=== PATIENT | male | born 2000 | race Caucasian/White ===

== ENCOUNTER 2025-02-08 01:13 | Emergency (ER) | payer BC, SELFPAY ==
--- OUTSIDE RECORDS SUMMARY | 2025-02-08 01:15 | XMS_ITS | Encounter Summary ---
Author Organization [facility] Address [address] [place] [address] Care Team Providers Care Statuary Painter Name Role Phone Víctor Peralta DO Primary Care Provider Reason for Visit * Reason Onset Date Comments MEDICATION REFILL 03/03/2015 Encounter Details Date Type Department Care Team ([facility] Contact Info) Description 03/03/2015 Refill [facility] - Diabetes Mgmt [facility] [place] [address] Mohinder Guevara MD [facility] [place] [address] MEDICATION REFILL Social History Tobacco Use Types Packs/Day Years Used Date Smoking Tobacco: Never Sex and Gender Information Value Date Recorded Sex Assigned at Not on file 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 Gender Identity Not on file Sexual Orientation Not on file documented as of this encounter Plan of Treatment Upcoming Encounters Date Type Department Care Team ([facility] Contact Info) Description 04/09/2025 1:00 PM CDT Office Visit [facility] - Endocrinology [address] [place] [phone] Elvia Maxwell APRN-CONCRETE PRECAST MOULDER [address] [facility] [place] [phone] documented as of this encounter Visit Diagnoses Not on filedocumented in this encounter Care Teams Statuary Painter Relationship Specialty Start Date End Date Víctor Peralta DO [address] [phone] PCP - General Family Medicine 10/27/23 documented as of this encounter
--- OUTSIDE RECORDS SUMMARY | 2025-02-08 01:15 | XMS_ITS | Encounter Summary ---
Author Organization [facility] Address [address] [place] [address] Care Team Providers Care Net Front End Developer Name Role Phone NormalydiaVíctor DO Primary Care Provider Reason for Visit * Reason Onset Date Comments MEDICATION REFILL 12/11/2024 Encounter Details Date Type Department Care Team (Late Contact Info) Description 12/11/2024 Refill [facility] [place] [phone] Elvia Maxwell APRN-REGULATORY AFFAIRS STRATEGY SPECIALIST [address] [place] [address] MEDICATION REFILL Social History Tobacco Use Types Packs/Day Years Used Date Smoking Tobacco: Never Smokeless Tobacco: Never Alcohol Use Standard Drinks/Week Comments Yes 0 (1 standard drink = 0.6 oz pur e alcohol) soccially Sex and Gender Information Value Date Recorded Sex Assigned at Not on file 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 Gender Identity Not on file Sexual Orientation Not on file documented as of this encounter Plan of Treatment Upcoming Encounters Date Type Department Care Team (Late Contact Info) Description 04/09/2025 1:00 PM CDT Office Visit [facility] [place] [phone] Elvia Maxwell GLASS TUBE BENDER-REGULATORY AFFAIRS STRATEGY SPECIALIST [address] [place] [phone] documented as of this encounter Visit Diagnoses Diagnosis Type 1 diabetes mellitus without complication (HCC) Type I (juvenile type) diabetes mellitus without mention of complication, not stated as uncontrolled documented in this encounter Care Teams Net Front End Developer Relationship Specialty Start Date End Date Víctor Peralta DO [address] [phone] PCP - General Family Medicine 10/27/23 documented as of this encounter
--- OUTSIDE RECORDS SUMMARY | 2025-02-08 01:15 | XMS_ITS | Encounter Summary ---
Author Organization [facility] Address [address] [place] [address] Care Team Providers Care Orthodontic Technician Assistant Name Role Phone WorkmanVíctor DO Primary Care Provider Reason for Visit * Reason Comments Refill Request Encounter Details Date Type Department Care Team (Late Contact Info) Description 04/02/2019 Refill [facility] - Diabetes [id number] [place] [address] [place], [facility]-CONTACT CENTER ASSOCIATE [address] [place] [address] Refill Request Social History Tobacco Use Types Packs/Day Years Used Date Smoking Tobacco: Never Smokeless Tobacco: Never Sex and Gender Information Value Date Recorded Sex Assigned at Not on file 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 Called mother and she stated Abdon has been seen by adult endo. Asked her to update Fazal on new physician. She agree.d documented in this encounter Plan of Treatment Upcoming Encounters Date Type Department Care Team (Late Contact Info) Description 04/09/2025 1:00 PM CDT Office Visit [facility] - Endocrinology [address] [place] [address] Elvia Maxwell APRN-CONTACT CENTER ASSOCIATE [address] [facility] [place] [phone] documented as of this encounter Visit Diagnoses Not on filedocumented in this encounter Care Teams Orthodontic Technician Assistant Relationship Specialty Start Date End Date Víctor Peralta DO [address] [phone] PCP - General Family Medicine 10/27/23 documented as of this encounter
--- OUTSIDE RECORDS SUMMARY | 2025-02-08 01:15 | XMS_ITS | Data Portability ---
Author Organization [place] - [facility] [employer], Main Office Address [address] [place] [address] Assessment No assessment recorded. Plan of Treatment Reminders Order Date Submit Date Provider Last Modified By Organization Details Last Modified Time Details Appointments None recorded . Lab HbA1c (hemoglo bin A1c), blood 023 12/24/19 23 [email or web address] Not available 3 15:29:10 CMP, serum or plasma 023 12/24/19 23 [email or web address] Not available 3 15:29:11 lipid panel, serum 023 12/24/19 23 Not available 3 15:29:11 microalb umin/cre atinine, mass ratio, urine 023 12/24/19 23 [email or web address] Not available 3 15:29:10 TSH + free T4, serum 023 12/24/19 23 [email or web address] Not available 3 15:29:11 Referral None recorded . Procedures None recorded . Surgeries None recorded . Imaging None recorded . Medication Orders None recorded . Patient TargetsNo targets recorded. Patient InstructionsNo instructions recorded. Reason for Referral None Reported. Results Created Date Observation Date Name Description Value Unit Range Abnormal Flag Note LastModifiedBy Organization Detail LastModifiedTime 03/07/20 22 03/07/2022 URINE DRUG SCREE N amphetamines negati ve Amphe tamin e cut off 500 ng/mL Not Available [facility] (Lab) [address] [place], [address], 03/07/2022 20:28:32 03/07/20 22 03/07/2022 URINE DRUG SCREE N barbiturates negati ve Deena turat e cut off 200 ng/mL Not Available [facility] (Lab) [address] [place], [address], 03/07/2022 20:28:32 03/07/20 22 03/07/2022 URINE DRUG SCREE N benzodiazepi reji negati ve Benzo diaze pine cut off 200 ng/mL Not Available [facility] (Lab) [address] [place], [address], 03/07/2022 20:28:32 03/07/20 22 03/07/2022 URINE DRUG SCREE N cocaine negati ve Cocai ne metab olite cut off 150 ng/mL Not Available [facility] (Lab) [address] [place], [address], 03/07/2022 20:28:32 03/07/20 22 03/07/2022 URINE DRUG SCREE N MDMA negati ve MDMA cut off 500 ng/mL Not Available [facility] (Lab) [address] [place], [address], 03/07/2022 20:28:32 03/07/20 22 03/07/2022 URINE DRUG SCREE N methadone negati ve Metha done cutof f 300 ng/mL . Not Available [facility] (Lab) [address] [place], [address], 03/07/2022 20:28:32 03/07/20 22 03/07/2022 URINE DRUG SCREE N opiates negati ve Opiat e cut off 300 ng/mL Not Available [facility] (Lab) [address] [place], [address], 03/07/2022 20:28:32 03/07/20 22 03/07/2022 URINE DRUG SCREE N oxycodone negati ve Oxyco done cut off 100 ng/mL Not Available [facility] (Lab) [address] [place], [address], 03/07/2022 20:28:32 03/07/20 22 03/07/2022 URINE DRUG SCREE N phencyclidin e negati ve PCP cut off 25 ng/mL Not Available [facility] (Lab) [address] [place], [address], 03/07/2022 20:28:32 03/07/20 22 03/07/2022 URINE DRUG SCREE N marijuana negati ve Marij uana cut off 50 ng/mL ANY POSIT DENIS RESUL TS REPOR CHECO ARE UNCON FIRME D, AND SUCH, SHOUL D BE USED FOR MEDIC AL TREAT MENT PURPO SES ONLY. Not Available [facility] (Lab) [address] [place], [address], 03/07/2022 20:28:32 Result Notes None recorded. Problems Name Problem SNOMED Code Status Onset Date Resolution Date Notes Provider Name and Address Organization Details Recorded Time Herpes labialis 1096000 Completed 201604/17/2018 Not Available [facility] 3 19:14:18 Asthma 360522863 Active 2016 Not Available [facility] 3 19:14:18 Recurrent oral herpes simplex infection 308958790 Active 2017 Not Available [facility] 3 19:14:19 Headache 54940686 Completed 201604/17/2018 Not Available [facility] 3 19:14:19 Seasonal allergic rhinitis 833045212 Active 2016 Not Available [facility] 3 19:14:19 Sinusitis 99189170 Completed 201604/04/2018 Not Available [facility] 3 19:14:19 Dizziness 711803164 Completed 201704/17/2018 Not Available [facility] 3 19:14:19 Allergic bronchitis 239115449 Completed 201704/17/2018 Not Available [facility] 3 19:14:19 Uncontroll ed type 1 diabetes mellitus 527698650 Active 2021 Not Available [facility] 3 19:14:19 Paronychia of finger 419508919 Active 2021 Not Available [facility] 3 19:14:19 Type 1 diabetes mellitus 96277962 Active 2017 Not Available [facility] 3 19:14:19 Liver enzymes level above reference range 685879500 Active 2017 Not Available [facility] 3 19:14:19 Problem Notes None recorded. Procedures Surgical History Date Name Laterality Status Provider Name and Address Organization Details Recorded Time Unlisted procedure nose completed Not Available [facility] 11/23/2022 19:13:40 Imaging Results None recorded. Procedure Notes None recorded. Medical Equipment None Reported. Allergies Allergen ID Allergen Name Allergen Category Reaction Reaction Severity Criticality Documentation Date Start Date Code Code System Note Provider Name and Address Organization Details Recorded Time 47251 Substance with sulfonami de structure and antibacte rial mechanism of action (substanc e) medicatio n Not available Not available Not available 11/23/2022 63295 8003 SNOMED Not Available [facility] 3 19:15:28 07609 Product containin g penicilli n (product) medicatio n Not available Not available Not available 11/23/2022 75226 8001 SNOMED Not Available [facility] 3 19:15:28 79660 NovoLog medicatio n other moderate Not available 11/23/2022 34038 0 RxNorm atrop hy of fat on stoma ch Not Available [facility] 3 19:15:28 Medications Name Sig Start Date Stop Date Status Note LastModified by Organization Details LastModified Time doxycycli ne hyclate 100 mg capsule Take 1 capsule twice a day by oral route for 10 days. 04/09 completed Not Available Not Available Not Available loperamid e 2 mg capsule 05/29 completed Not Available Not Available Not Available cetirizin e 10 mg tablet Take 1 tablet every day by oral route. 09/21 completed Not Available Not Available Not Available azithromy willam 250 mg tablet TAKE 2 TABLETS BY MOUTH ON DAY 1, AND THEN TAKE 1 TABLET BY MOUTH ONCE A DAY ON DAY 2 THROUGH DAY 5 active Not Available Not Available No t Available ibuprofen 800 mg tablet 04/25 completed PRN Not Available Not Available Not Available Glucagon Emergency Kit 1 mg solution for injection active Not Available Not Available No t Available hydrocodo ne 5 mg-acetam inophen 325 mg tablet 03/05 completed Not Available Not Available Not Available ondansetr on HCl 4 mg tablet 05/29 completed Not Available Not Available Not Available clindamyc in HCl 150 mg capsule 03/05 completed Not Available Not Available Not Available metronida zole 500 mg tablet 05/29 completed Not Available Not Available Not Available ciproflox acin 500 mg tablet 05/29 completed Not Available Not Available Not Available triamcino lone acetonide 0.1 % topical cream 04/25 completed Not Available Not Available Not Available famciclov ir 250 mg tablet TAKE 1 TABLET BY MOUTH DAILY 2022 active Not Available Not Available Not Avai lable famciclov ir 500 mg tablet 03/07 completed Not Available Not Available Not Available Humalog U-100 Insulin 100 unit/mL subcutane ous solution INJECT SUBCUTAN EOUSLY UP TO 200 UNITS EVERY 2 DAYS active Not Available Not Available No t Available cephalexi n 500 mg capsule Take 1 capsule 3 times a day by oral route for 7 days. active Not Available Not Available No t Available oseltamiv ir 75 mg capsule Take 1 capsule twice a day by oral route for 5 days. active Not Available Not Available No t Available Qvar 40 mcg/actua tion Metered Aerosol oral inhaler Inhale 2 puffs twice a day by inhalati on route as directed for 30 days. active Not Available Not Available No t Available monteluka st 10 mg tablet Take 1 tablet every day by oral route for 30 days. 09/21 completed Not Available Not Available Not Available methylpre dnisolone 4 mg tablets in a dose pack Take 1 dose pk every day by oral route as directed for 6 days. 04/17 completed Not Available Not Available Not Available fluticaso ne propionat e 50 mcg/actua tion nasal spray,nate pension Downing 2 sprays every day by intranas al route as directed for 90 days. active Not Available Not Available No t Available amoxicill in 875 mg-potass ium clavulana te 125 mg tablet 04/04 completed Not Available Not Available Not Available azithromy willam 500 mg tablet 09/14 completed Not Available Not Available Not Available ProAir HFA 90 mcg/actua tion aerosol inhaler Inhale 2 puffs every 4-6 hours by inhalati on route as needed for 30 days. active Not Available Not Available No t Available budesonid e-formote rol HFA 160 mcg-4.5 mcg/actua tion aerosol inhaler USE 1 TO 2 INHALATI ONS BY MOUTH TWICE DAILY DIRECTED 2023 active Not Available Not Available Not Avai lable Contour Next Test Strips USE STRIP TO CHECK GLUCOSE FIVE TIMES DAILY active Not Available Not Available No t Available Tresiba FlexTouch U-100 insulin 100 unit/mL (3 mL) subcutane ous pen INJECT 24 UNITS SUBCUTAN EOUSLY ONCE DAILY AT BEDTIME active Not Available Not Available No t Available Afrezza 4 unit (90)/8 unit (90) cartridge with inhaler Inhale 4 units 3 times a day by inhalati on route before meals for 30 days. 02/06 completed Not Available Not Available Not Available Danielaglsoila KwikPen U-100 Insulin 100 unit/mL (3 mL) subcutane ous inject up to 15 units in morning and 25 units at bedtime if needed for emergenc ies only 2022 active Not Available Not Available Not [facility] Dexcom G6 Sensor device change every 10 days 2022 active Not Available Not Available Not Avleonora lable Dexcom G6 Recreational Resort Manager USE DIRECTED active Not Available Not Available No t Available Dexcom G6 Transmitt er device USE DIRECTED 2022 active Not Available Not Available Not [facility] Glucagon (HCl) Emergency Kit 1 mg solution for injection Take 1 mg as needed by injectio n route as needed for 1 day. active injet 1 mg IM as needed for sugars under 50 mg/dL or if unable to take glucose by mouth Not Available Not Available Not Available Omnipod 5 G6 Pods (Gen 5) subcutane ous cartridge CHANGE EVERY 2 TO 3 DAYS DIRECTED active Not Available Not Available No t Available Vitals Date Recorded Body mass index (BMI) Body height Oxygen saturation Oxygen saturation in Arterial blood by Pulse oximetry Heart rate Respiratory rate Body temperature Body weight Systolic blood pressure Diastolic blood pressure Provider Name and Address Organization Details Last Updated DateTime 1 30.8 kg/m2 177.8 cm 98 % 98 % 95 /min 16 /min 98.2 [degF] 23331.3 6 g 100 mm[Hg] 80 mm[Hg] Not Available [facility] 3 19:14:07 Date Recorded Body mass index (BMI) Body height Oxygen saturation Oxygen saturation in Arterial blood by Pulse oximetry Heart rate Respiratory rate Body temperature Body weight Systolic blood pressure Diastolic blood pressure Provider Name and Address Organization Details Last Updated DateTime 2 30.8 kg/m2 177.8 cm 99 % 99 % 91 /min 16 /min 98 [degF] 95484.3 6 g 104 mm[Hg] 82 mm[Hg] Not Available [facility] 3 19:14:07 Date Recorded Body mass index (BMI) Body height Oxygen saturation Oxygen saturation in Arterial blood by Pulse oximetry Heart rate Body temperature Body weight Systolic blood pressure Diastolic blood pressure Provider Name and Address Organization Details Last Updated DateTime 2 32.4 kg/m2 177.8 cm 98 % 98 % 96 /min 98 [degF] 051441. 16 g 120 mm[Hg] 80 mm[Hg] Not Available [facility] 3 19:14:07 Date Recorded Body height Body mass index (BMI) Body weight Body temperature Heart rate Systolic blood pressure Diastolic blood pressure Provider Name and Address Organization Details Last Updated DateTime 3 177.8 cm 33.7 kg/m2 971857. 77 g 97.8 [degF] 100 /min 144 mm[Hg] 86 mm[Hg] PARMINDER Saul [place] [facility] [employer] [facility] 3 15:14:32 Social History Question Answer Notes LastModified by Organizat ion Details LastModified Time Tobacco Smoking Status Never Smoker Not Available [facility] 11/23/2022 19:13:33 Do You Have An Advance Directive? No [id number] Information not available 11/23/2022 Do You Wear A Helmet When Biking? Yes MIGRATION.330375 5290 Information not available 11/23/2022 What Is Your Level Of Caffeine Consumption? Moderate MIGRATION.361540 6812 Information not available 11/23/2022 In The 14 Days Before Symptom Onset, Have You Had Close Contact With A Laboratory-confirm ed COVID-19 While That Case Was Ill? No MIGRATION.[id number] 3846 Information not available 11/23/2022 In The 14 Days Before Symptom Onset, Have You Had Close Contact With A Person Who Is Under Investigation For COVID-19 While That Person Was Ill? No MIGRATION.235057 9554 Information not available 11/23/2022 What Type Of Diet Are You Following? REGULAR MIGRATION.346421 9129 Information not available 11/23/2022 Which Illicit Or Recreational Drugs Have You Used? None MIGRATION.413488 3697 Information not available 11/23/2022 What Is The Highest Grade Or Level Of School You Have Completed Or The Highest Degree You Have Received? [id number] MIGRATION.135745 2219 Information not available 11/23/2022 Have There Been Any Changes To Your Family Or Social Situation? No MIGRATION.766453 3799 Information not available 11/23/2022 Are There Any Guns Present In Your Home? No MIGRATION.757809 6069 Information not available 11/23/2022 Do You Use Insect Repellent Routinely? No MIGRATION.153256 8307 Information not available 11/23/2022 Where Do You Live? Apartment MIGRATION .[id number] 9841 Information not available 11/23/2022 Do You Have A Medical Power Of Z [employer] Program[employer]? No MIGRATION.546626 1906 Information not available 11/23/2022 Have You Ever Been Counseled For Unhealthy Alcohol Use? No MIGRATION.839425 5619 Information not available 11/23/2022 Do You Have Any Pets? Yes MIGRATION.990589 6221 Information not available 11/23/2022 What Is Your Relationship Status? Single MIGRATION.305132 7437 Information not available 11/23/2022 Do You Use Your Seat Belt Or Car Seat Routinely? Yes MIGRATION.428705 5109 Information not available 11/23/2022 Do You Have Smoke And Carbon Monoxide Detectors In Your Home? Yes MIGRATION.928744 5249 Information not available 11/23/2022 Are You Passively Exposed To Smoke? No MIGRATION.991783 4595 Information not available 11/23/2022 Are There Any Smokers In Your House? No MIGRATION.919463 2235 Information not available 11/23/2022 Do You Participate In Social Media? Yes MIGRATION.850159 1845 Information not available 11/23/2022 Do You Use Sunscreen Routinely? Yes MIGRATION.881732 3209 Information not available 11/23/2022 Has Tobacco Cessation Counseling Been Provided? No MIGRATION.402182 8102 Information not available 11/23/2022 Have You Recently Traveled Abroad? No MIGRATION.010069 6298 Information not available 11/23/2022 Are You Currently In School? Yes MIGRATION.291063 1255 Information not available 11/23/2022 Do You Have Any Dietary Restrictions? No MIGRATION.902876 6683 Information not available 11/23/2022 Sex: Male Functional Status Question Answer Note LastModified by Organizat ion Details LastModified Time Do you use any illicit or recreational drugs? No MIGRATION.505841 0913 Information not available 11/23/2022 Do you or have you ever used any other forms of tobacco or nicotine? No MIGRATION.671254 1595 Information not available 11/23/2022 What is your level of alcohol consumption? Moderate MIGRATION.188479 9983 Information not available 11/23/2022 What is your occupation? [employer] MIGRATION.450071 3541 Information not available 11/23/2022 Do you or have you ever used e-cigarettes or vape? Current user of electronic cigarettes vap MIGRATION.583935 4990 Information not available 11/23/2022 What is your exercise level? Moderate MIGRATION.492734 9165 Information not available 11/23/2022 Mental Status Question Answer Note LastModified by Organizat ion Details LastModified Time Do you feel stressed (tense, restless, nervous, or anxious, or unable to sleep at night)? EN1435-4 MIGRATION.[id number] 6 Information not available 11/23/2022 Family History Nothing Reported. Medical History Condition Response DIABETES, TYPE Y LUNG DISEASE/DISORDER Y Immunizations Vaccine Type Date Status Note Provider Nam e and Address Organization Details Recorded Time DTaP, unspecified formulation 9 completed Not Available [facility] 11/23/2022 19:15:25 Hib (PRP-T) 9 completed Not Available [facility] 11/23/2022 19:15:25 IPV 9 completed Not Available [facility] 11/23/2022 19:15:25 meningococcal MCV4P 6 completed Not Available [facility] 11/23/2022 19:15:25 HPV, quadrivalent 4 completed Not Available [facility] 11/23/2022 19:15:25 HPV, quadrivalent 3 completed Not Available [facility] 11/23/2022 19:15:25 HPV, quadrivalent 3 completed Not Available [facility] 11/23/2022 19:15:25 Hep A, ped/adol, 2 dose 1 completed Not Available [facility] 11/23/2022 19:15:25 Hep A, ped/adol, 2 dose 0 completed Not Available [facility] 11/23/2022 19:15:25 meningococcal MCV4P 0 completed Not Available [facility] 11/23/2022 19:15:26 Tdap 0 completed Not Available [facility] 11/23/2022 19:15:26 DTaP, unspecified formulation 5 completed Not Available [facility] 11/23/2022 19:15:26 IPV 5 completed Not Available [facility] 11/23/2022 19:15:26 MMR 5 completed Not Available [facility] 11/23/2022 19:15:26 pneumococcal conjugate PCV 7 1 completed Not Available [facility] 11/23/2022 19:15:26 DTaP, unspecified formulation 1 completed Not Available [facility] 11/23/2022 19:15:26 Hib (PRP-T) 0 completed Not Available [facility] 11/23/2022 19:15:26 Hep B, adolescent or pediatric 0 completed Not Available [facility] 11/23/2022 19:15:26 MMR 0 completed Not Available [facility] 11/23/2022 19:15:26 DTaP, unspecified formulation 0 completed Not Available [facility] 11/23/2022 19:15:26 Hib (PRP-T) 0 completed Not Available [facility] 11/23/2022 19:15:26 Hep B, adolescent or pediatric 0 completed Not Available [facility] 11/23/2022 19:15:26 IPV 0 completed Not Available [facility] 11/23/2022 19:15:27 DTaP, unspecified formulation 0 completed Not Available [facility] 11/23/2022 19:15:27 Hib (PRP-T) 0 completed Not Available [facility] 11/23/2022 19:15:27 Hep B, adolescent or pediatric 0 completed Not Available [facility] 11/23/2022 19:15:27 IPV 0 completed Not Available [facility] 11/23/2022 19:15:27 Tdap 1 completed Not Available [facility] 11/23/2022 19:15:27 Influenza, split virus, quadrivalent, PF 1 completed Not Available [facility] 11/23/2022 19:15:27 Past Encounters Encounter ID Performer Location Encounter Start Date Encounter Closed Date Diagnosis/Indication Diagnosis SNOMED-CT Code Diagnosis ICD10 Code Diagnosis Note [id number] Daisy Torres MD [facility] [place] [address] [place] [id number] 04/09/2021 00:00:00 04/09/2021 14:47:13 [id number] Anthony Ku MD [address] [address] 09/14/2021 00:00:00 09/14/2021 14:31:18 [id number] [facility] [place] [address] [place] [id number] 10/11/2021 00:00:00 10/11/2021 14:33:59 [id number] Anthony Ku MD [facility]_[address] [address] 03/07/2022 00:00:00 03/07/2022 15:15:03 [id number] [facility] [place] [address] [place] [address] 05/20/2022 00:00:00 05/20/2022 16:13:42 [id number] Daisy Torres [facility] [place] [address] [place] [address] 12/23/2022 14:58:02 12/23/2022 15:44:57 Uncontrolled type 1 diabetes mellitus 324761509 E10.65 a1C of 8% down from 8.3% Continue settings as follows but increase afternoon setting due to hyperglyce mia12 am to 6 am at 1.7 u/hr6 am up to 12 pm at 1.4 u/hrincrea se to 12 pm to 6 pm at 1.4 u/hr6 pm to 12 am at 1.45 u/hr Cut carb ratio down to 1:6 for lunch and dinner and continue 1:8 for dinner. Continue omnipod / automode settings as he has glucose regulation over 70% of the time. He has Gvoke pen for hypoglycem ia. Spent up to 20 minutes preparing to see the patient (eg, review of tests), obtaining and/or reviewing separately obtained history, performing a medically appropriat e examinatio n and evaluation , counseling and educating the patient, ordering medication s, tests, along with documentin g clinical informatio n in the electronic health record, independen tly interpreti ng results and communicat ing results to the patient. rtc in 6 months. Patient was provided a handwritte n lab order which contains our fax number. If he chooses to go outside of the [facility] system to obtain labwork he was advised to provide our fax number and my informatio n to the lab he will be obtaining labwork from in order to have his labs properly forwarded over for me to review so there is no loss of follow up due to use of outside network. He was also advised to contact our clinic informing us that he has completed his labwork so we are aware we will need to reach out to the appropriat e laboratory to request his results be forwarded to us so I might have the ability to review and make further medical decision making in his case. He voiced understand ing. Health Concerns Section Related Observation LastModified by Organization Detai ls LastModified Time None Recorded Concern Status LastModified by Organization Details LastModified Time None Recorded Advance Directives Directive N: Payers Encounter Date Sequence Insurance Name Policy Number Policy Urbina Covered Member ID Urbina Member ID Guarantor Name 12/23/2022 1 [employer] (EPO) Abdon Mcghee Rehg [id number] Shanice Rehg Notes Date Note Type Note Provider Name and Address Organization Details Recorded Time 12/23/2022 text/html 22 yo male comes in for follow up in management of uncontrolled type I DM (A1C of 8% down from 8.3%) At last visit we will continue basal settings:12 am to 6 am at 1.7 u/hr6 am up to 12 pm at 1.4 u/hr12 pm to 6 pm at 1.3 u/hr6 pm to 12 am at 1.45 u/hr labs from 10/17:TSH of 1.15 uIU/mlFT4 of 1.17 ng/dLglucose 97 mg/dl165/110/51/94 a1c 8%microalbumin 15 ug/mg He just started the ominpod 5 since his last labwork. He has noticed more improvements in glucose control overall. He has very few hypoglycemia He runs under 130 mg/dL.He is 211 mg/dL currently - ate 2 hours ago. Daisy Torres MD [address] [place] [address], [facility] [address], [place], [address], [place] [facility] 12/23/2022 15:34:44
--- OUTSIDE RECORDS SUMMARY | 2025-02-08 01:15 | XMS_ITS | Clinical Summary ---
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 Peanut-Containing Drug Products Anaphylaxis High 02/04/2014 Penicillins Unknown 05/13/2010 Sulfa Antibiotics Rash Low 10/28/2022 Medications cetirizine (ZYRTEC) 10 MG tablet Take 1 tablet (10 mg total) by mouth daily. Active budesonide-form oterol (SYMBICORT) 160-4.5 MCG/ACT inhaler Inhale 2 puffs into the lungs 2 (two) times daily. Active BASAGLAR KWIKPEN 100 UNIT/ML injection (PEN) INJECT UP TO 15 UNITS IN THE MORNING AND 25 UNITS AT BEDTIME IF NEEDED. FOR EMERGENCIES ONLY 023 Active Insulin Disposable Pump (OMNIPOD 5 G6 POD, GEN 5,) MiscIndications :Type 1 diabetes mellitus without complication (CMS/HCC HHS/HCC) 1 each by Does not apply route every 3 (three) days. Patient changing POD every 2 to 3 days. 45 each 024 Active Additional Information Patient not taking.Reported on 12/02/2024 glucagon (GLUCAGON EMERGENCY) 1 MG injection Inject 1 mg into the muscle. Active albuterol sulfate HFA (PROAIR HFA) 108 (90 Base) MCG/ACT inhalerIndicati ons:SOB (shortness of breath) Inhale 2 puffs into the lungs every 4 (four) hours as needed for Wheezing. 18 g Active Additional Information Patient not taking.Reported on 12/02/2024 Glucose Blood (CONTOUR NEXT TEST) test strip USE STRIP TO CHECK GLUCOSE FIVE TIMES DAILY Active Continuous Glucose Broadcast Supervisor (DEXCOM G6 DELIVERY ENGINEER) Device see administration instructions. Active Continuous Glucose Transmitter (DEXCOM G6 TRANSMITTER) Misc see administration instructions. Active insulin lispro (HUMALOG/ADMELO G) 100 UNIT/ML injection (VIAL) Inject 100 Units into the skin every 3 (three) days. Active famciclovir (FAMVIR) 250 MG tabletIndicatio ns:Herpes simplex type 1 infection Take 1 tablet (250 mg total) by mouth 2 (two) times daily. 180 tablet 1 025 2024 Active PARoxetine (PAXIL) 20 MG tabletIndicatio ns:Anxiety Take 1 tablet (20 mg total) by mouth every morning. 90 tablet 025 2024 Active PARoxetine (PAXIL) 10 MG tabletIndicatio ns:Anxiety Take 1 tablet (10 mg total) by mouth every morning. 90 tablet 025 2024 Discontinued Active Problems No known active problems Encounters Date Type Department Care Team Description 01/13/2025 MyChart Message Enc [facility] Family & Internal Medicine [address] [phone] Chaz Goel PA Paroxetine prescription 12/02/2024 8:40 AM CDT Office Visit [facility] Family & Internal Medicine [address] [phone] Chaz Goel PA Follow Up (5 month follow up); Medication Management 12/02/2024 Travel from Last 3 Months Immunizations Immunization Administration Dates Next Due DTaP (Daptacel) 02/16/2005, 1,01/31/2000,11/28,1999 Dtap (Generic) 02/16/2005, 1,01/31/2000,11/28,1999 Fluzone (IIV3, Trivalent, 0. 5 ML Prefilled Syringe) 07/10/2024 HPV4 (Gardasil) 10/25/2013,07/12/2013,04/17/2013 Hepatitis A (Havrix [address]) 01/27/2011, 010 Hepatitis B Pediatric 07/28/2000,01/31/2000,02/2000 Hib (Omni-Hib) 07/28/2000, 0,1999,09/11 Influenza (Generic) 07/12/2013, 2,06/16/2011,07/29,07/15/2009,07/11/2008,07/26/2007 ,07/05/2005,08/16/2004,08/29/2003,0 02/2003 Influenza Adult (Generic) 09/14/2021,,09/20/2017,08/05,09/03/2015 MMR (MMRII) 02/16/2005,07/28/2000 Meningococcal (Menactra) 05/09/2016,07/29/2010 Pneumococcal (Prevnar 7) 04/13/2001 Polio IPV (Ipol) 02/16/2005, 0,1999,09/11 Tdap (Generic) 09/14/2021,07/29/2010 Varicella (Varivax) 07/10/2024,05/07/2024 Family History Medical History Relation Comments Cancer Maternal Grandfather Diabetes Maternal Grandmother Heart Disease Paternal Grandfather Stroke Paternal Grandfather Relation Status Comments Father Alive Maternal Grandfather Maternal Grandmother Mother Alive Paternal Grandfather Sister Alive Social History Tobacco Use Types Packs/Day Years Used Date Smoking Tobacco: Never Passive Smoke Exposure: Never Smokeless Tobacco: Never Tobacco Cessation:Counseling Given: No Alcohol Use Standard Drinks/Week Comments Yes 8.3 (1 standard drink = 0.6 oz p ure alcohol) Casually drink PHQ-2 Answer Date Recorded Patient Health Questionnaire-2 Score 0 12/02/2024 Sex and Gender Information Value Date Recorded Sex Assigned at Male 11/26/2024 9:31 AM LANGUAGE INTERPRETER Legal Sex Male 7:46 PM CDT Gender Identity Not on file Sexual Orientation Not on file Last Filed Vital Signs Vital Sign Reading Time Taken Comments Blood Pressure 136/74 12/02/2024 8:40 AM CDT Pulse 94 12/02/2024 8:40 AM CDT Temperature 36.6 C (97.9 F) 12/02/2024 8:40 AM CDT Respiratory Rate 16 12/02/2024 8:40 AM CDT Oxygen Saturation 97% 12/02/2024 8:40 AM CDT Inhaled Oxygen Concentration - - Weight 108.4 kg (239 lb) 12/02/2024 8:40 AM CDT Height 177.8 cm (5' 10 ) 12/02/2024 8:40 AM CDT Body Mass Index 34.29 12/02/2024 8:40 AM CDT Plan of Treatment Upcoming Encounters Date Type Department Care Team (Late st Contact Info) Description 03/05/2025 8:40 AM CDT Office Visit [facility] Family & Internal Medicine - [place] [id number] [place] [phone] [place] [address] [place], [place] [phone] Health Maintenance Due Date Last Done Comments Hepatitis C 2017 COVID-19 Vaccine ( season) 2024 Annual Physical 08/11/2024 08/11/2023 Kidney Health Evaluation 03/06/2025 03/06/2024 Lipid Panel 03/06/2025 03/06/2024 Pneumococcal Vaccine: Pediatrics (0 to 5 Years) and At-Risk Patients (6 to 49 Years) (1 of 2 - PCV) 03/25/2025 04/13/2001 Postponed from 2018 (Patient Refused) Hemoglobin A1C 05/31/2025 11/28/2024, 02/23, 11/10/2023, Additional history exists Diabetes: Retinopathy Eye Exam 03/25/2026 Postponed from 2017 (Future Appointment) DTaP, Tdap and Td Vaccines (8 - Td or Tdap) 09/14/2031 09/14/2021, 07/29/2010, 02/16/2005, Additional history exists Hepatitis B Vaccines Completed 07/28/2000, 01/31/2000, 1999 HPV Vaccines Completed 10/25/2013, 06/25, 04/17/2013 Meningococcal Vaccine Completed 05/09/2016, 010 PHQ-2 (Physician [place]) Completed 12/02/2024 Meningococcal B Vaccine Aged Out No l onger eligible based on patient's age to complete this topic RSV Immunizations Under 20 Months Aged Out No longer eligible based on patient's age to complete this topic Procedures Procedure Name Priority Date/Time Associated Diagnosis Comments LIPID PANEL Routine 03/06/2024 2:10 PM CDT Type 1 diabetes mellitus without complication HEMOGLOBIN, GLYCOSYLATED Routine 11/10/2023 Type 1 diabetes mellitus without complication from Last 3 Months or Most Recently Relevant to Health Maintenance Results * LIPID PANEL (03/06/2024 2:10 PM CDT) CHOLESTEROL 151 <200.0 MG/DL 03/06/2024 2:49 PM CDT [facility] TRIGLYCERIDES 70 <150 MG/DL 03/06/2024 2:49 PM CDT [facility] HDL 62 >40.0 MG/DL 03/06/2024 2:49 PM CDT [facility] LDL (CALCULATED) 75 <100 MG/DL 03/06/20 2:49 PM CDT [facility] NON HDL CHOLESTEROL 89 <130 MG/DL 03/06 2:49 PM CDT [facility] CHOL/HDL RATIO 2.4 0.0 - 4.5 03/06/2024 2:49 PM CDT [facility] VLDL CALCULATION 14 5 - 55 MG/DL 03/06/2024 2:49 PM CDT [facility] LIPID INTERPRETATION 03/06/2024 2:49 PM CDT [facility] Comment: NIH CONCENSUS REPORT RECOMMENDATIONS: ADULT CHILD LOW RISK: CHOLESTEROL <200 <170 TRIGLYCERIDE <150 --- HDL >=60 --- LDL <100 <110 BORDERLINE: CHOLESTEROL 200-239 170-199 TRIGLYCERIDE 150-199 --- HDL 40-59 --- LDL 100-159 110-129 HIGH RISK: CHOLESTEROL >=240 >=200 TRIGLYCERIDE >=200 --- HDL <40 --- LDL >=160 >=130 03/06/2024 2:10 PM CDT Elvia Alissa AUTO GLASS TECHNICIAN LABORATORY Final Resu lt [facility] [address] [place] [address], from Last 3 Months or Most Recently Relevant to Health Maintenance Insurance R Care Teams Boatbuilder Supervisor Relationship Specialty [place] [address] [place], [place] [phone] PCP - General Physician Sales Financial Analyst Medical 07/10/24
--- OUTSIDE RECORDS SUMMARY | 2025-02-08 01:15 | XMS_ITS | Encounter Summary ---
Author Organization [facility] Address [address] [place] [address] Care Team Providers Care Apprenticeship Representative Name Role Phone NormalydiaVíctor DO Primary Care Provider Reason for Visit * Reason Onset Date Comments Appointment 01/13/2016 Dad ask that I s end you a message regarding CGM training. The CGM will be delivered Sunday 01/14. Encounter Details Date Type Department Care Team ([facility] Contact Info) Description 01/13/2016 Telephone [facility] - Diabetes [facility] [address] [place] [address] [place] APRN-BUSINESS RULES DEVELOPER [address] [place] [phone] Appointment (Dad ask that I send you a message regarding CGM training. The CGM will be delivered Sunday 01/14. 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 Gender Identity Not on file Sexual Orientation Not on file documented as of this encounter Plan of Treatment Upcoming Encounters Date Type Department Care Team ([facility] Contact Info) Description 04/09/2025 1:00 PM CDT Office Visit [facility] - Endocrinology [address] [place] [phone] Elvia Maxwell APRN-BUSINESS RULES DEVELOPER [address] [facility] [place] [phone] documented as of this encounter Visit Diagnoses Not on filedocumented in this encounter Care Teams Apprenticeship Representative Relationship Specialty Start Date End Date Víctor Peralta DO [address] [phone] PCP - General Family Medicine 10/27/23 documented as of this encounter
--- OUTSIDE RECORDS SUMMARY | 2025-02-08 01:15 | XMS_ITS | Encounter Summary ---
Author Organization [facility] Address [address] [facility] [place] [address] Care Team Providers Care Concrete Plant Laborer Name Role Phone WorkVíctor freeman Primary Care Provider Encounter Details Date Type Department Care Team ([facility] Contact Info) Description 12/10/2018 Telephone [facility] Pediatrics - Endocrinology [address] [place] [facility] 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 [facility] wants more than referral letter sent to them. They want: any diagnostic labs, last office visit and last Hgb A1C. She states they will not make appointment until received. Fax number is [phone]. documented in this encounter Plan of Treatment Upcoming Encounters Date Type Department Care Team (Late Contact Info) Description 04/09/2025 1:00 PM CDT Office Visit [facility] - Endocrinology [address] [place] [phone] Elvia Maxwell, VIPUL-SUPERVISOR DENTURE DEPARTMENT [address] [facility] [place] [phone] documented as of this encounter Visit Diagnoses Not on filedocumented in this encounter Care Teams Concrete Plant Laborer Relationship Specialty Start Date End Date Víctor Peralta DO [address] [phone] PCP - General Family Medicine 10/27/23 documented as of this encounter
--- OUTSIDE RECORDS SUMMARY | 2025-02-08 01:15 | XMS_ITS | Encounter Summary ---
Author Organization [facility] Address [address] [facility] [place] [address] Care Team Providers Care Security Messenger Name Role Phone Normalydia Víctor Willard GOODRICH Primary Care Provider Encounter Details Date Type Department Care Team (Late Contact Info) Description 10/09/2019 Telephone [facility] Pediatrics - Diabetes [facility] [address] [place] [address] [place], SHIPPING CHECKER-VISUAL DISPLAY MANAGER [address] [place] [phone] Social History Tobacco Use Types Packs/Day Years Used Date Smoking Tobacco: Never Smokeless Tobacco: Never Sex and Gender Information Value Date Recorded Sex Assigned at Not on file Legal Sex Male 5:40 AM TRANSITION SOCIAL WORKER Gender Identity Not on file Sexual Orientation Not on file documented as of this encounter Miscellaneous Notes * Telephone Encounter - Chen Plummer RN - 10/09/2019 1:39 PM CST [facility] called to ask if this patient was still under our care. I notified them that he isnot being seen by an adult park recreation manager. They said they would reach out to the family. SITION SOCIAL WORKER documented in this encounter Plan of Treatment Upcoming Encounters Date Type Department Care Team (Late Contact Info) Description 04/09/2025 1:00 PM CDT Office Visit [facility] - Endocrinology [address] [place] [address] Elvia Maxwell, VIPUL-VISUAL DISPLAY MANAGER [address] [facility] [place] [phone] documented as of this encounter Visit Diagnoses Not on filedocumented in this encounter Care Teams Security Messenger Relationship Specialty Start Date End Date Víctor Peralta DO [address] [phone] PCP - General Family Medicine 10/27/23 documented as of this encounter
--- OUTSIDE RECORDS SUMMARY | 2025-02-08 01:15 | XMS_ITS | Clinical Summary ---
Author Organization [facility] Address [address] [place] [address] Care Team Providers Care Anesthesiologists' Assistant Name Role Phone WorkmanVíctor Primary Care Provider Source Comments [facility],non-owned Affiliates and Associated Physician Practices is amultiple site organization consisting of ambulatory clinics and hospital sitesin [place], [place], [place]. This disclosure is being madepursuant to the Care Everywhere program and may not contain all information available regarding this patient. 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 Alwaysverify current medications with the patient. fluticasone propionate (FLONASE) 50 MCG/ACT nasal spray [place] 1 [place] into each nostril once daily. 1 Inhaler 6 06/19/20 12 Active acetone,urine, (KETOSTIX) stripIndications :Type I (juvenile type) diabetes mellitus without mention of complication, not stated as uncontrolled (HCC) Use as needed (use when blood sugar is greater than 250 or when ill. ). 100 Strip 11 08/29/20 13 Active cetirizine (ZYRTEC) 10 MG tablet Take 1 Tab by mouth once daily. 30 Tab 11 02/05/20 14 Active diphenhydrAMINE (BENADRYL) 25 MG capsule Take 1 (one) capsule by mouth every 4 hours as needed for Itching Active beclomethasone dipropionate (QVAR) 40 MCG/ACT inhaler Inhale 2 Puffs by mouth 2 times daily Active budesonide-formo terol (SYMBICORT) 160-4.5 MCG/ACT inhaler Inhale 2 (two) puffs by mouth 2 times daily Active BASAGLAR KWIKPEN (BASAGLAR) pen Inject 31 Units subcutaneously at bedtime In case of pump failure, give every 24 hours. 1 Box 3 03/30/20 18 Active Insulin Pen Needle (BD PEN NEEDLE YANIV U/F) 32G X 4 MM MISC Use 1 Each once daily For use with Basaglar if off pump, may substiute comparable item per formulary. 100 Each 3 03/30/20 18 Active FREESTYLE TEST STRIP test stripIndications :Type 1 diabetes mellitus without complication, with long-term current use of insulin (HCC) Use for blood glucose monitoring 8-10 times/day. 300 strip 2 11/14/19 19 Active albuterol HFA (ProAir HFA) 108 (90 Base) MCG/ACT inhaler Inhale 2 puffs every 4-6 hours by inhalation route as needed for 30 days. Active glucagon (Glucagen) injection Inject 1 (one) mg into muscle as directed 1 Each 10/27/19 24 Active insulin lispro 100 UNIT/ML for insulin pumpIndications: Type 1 diabetes mellitus without complication (HCC) Inject subcutaneously once daily 100 units daily, for use in insulin pump 90 mL 3 06/28/20 24 Active Continuous Glucose Transmitter (Dexcom G6 Transmitter) MISCIndications: Type 1 diabetes mellitus without complication (HCC) USE DIRECTED CONTINUOUSLY 1 Each 3 11/11/19 25 Active Insulin Disposable Pump (Omnipod 5 PthX4N2 Pods Gen 5) MISCIndications: Type 1 diabetes mellitus without complication (HCC) USE DIRECTED CONTINUOUSLY 45 Each 4 11/11/19 25 Active famciclovir (Famvir) 250 MG tablet Take 1 (one) tablet by mouth once daily 11/22/19 25 Active Continuous Glucose Sensor (Dexcom G7 Sensor) MISCIndications: Type 1 diabetes mellitus without complication (HCC) Use 1 Each every 10 days 10 Each 3 11/29/19 25 Active Continuous Glucose Sensor (Dexcom G7 Sensor) MISCIndications: Type 1 diabetes mellitus without complication (HCC) Use 1 Each every 10 days 1 Each 11/29/19 25 Active Active Problems Problem Noted Date Diagnosed Date Insulin pump status 11/27/2023 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 This is currently under good control. Current treatment plan, which includes Symbicort 160/4.5 2 puffs each day, is effective. No change in therapy today. However, as environmental factors such as pollens and molds seem to be Abdon's triggers, recommend that he try to decrease dose to 1 puff once a day after first keys. However, if symptoms worsen with decreased dose, he should resume 2 puffs daily. Will plan follow-up assessment for control in 6 months. Assessment & Plan (02/17/2015 4:10 PM CDT): Mild persistent - currently with good control. He has normal spirometry today and well controlled symptoms. His measure of airway inflammation is mildly increased suggesting that he does have some underlying inflammation going on. 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 Will reassess ongoing need at next visit. Type 1 diabetes mellitus 05/15/2007 Overview (12/22/2016): Diagnosed 05/15/2007 Assessment & Plan (09/21/2017 12:30 PM CONE RUNNER): 1) increase midnight basal to 1.9 units per hour 2) call as needed to review blood sugars 3) return in [address] Guevara Assessment & Plan (12/22/2016 10:14 AM CDT): 1) decrease breakfast to 1:15 2) call as needed to review blood sugars 3) return in [address] Guevara Assessment & Plan (12/07/2015 8:16 AM CDT): 1) work on pre-meal bolusing 2) will order dexcom g5 sensor 3) call as needed 4) return for Dr. Guevara Assessment & Plan (04/28/2014 1:30 PM CDT): 1) increase basal from 5013-8849 to 1.5 2) increase ISF to 25 3) call as needed 4) return in [address] Guevara Resolved Problems Problem Noted Date Diagnosed Date Resolved Date Asthma 02/17/2012 02/17/2015 Encounters Date Type Department Care Team Description 01/08/2025 Travel 12/11/2024 Refill [facility] - Endocrinology [address] [place] [address] Elvia Maxwell APRN-CNP MEDICATION REFILL 11/28/2024 2:20 PM CONE RUNNER Office Visit [facility] - Endocrinology [address] [place] [address] Elvia Maxwell APRN-CNP Type 1 diabetes mellitus without complication (Primary Dx) 11/28/2024 Travel 11/13/2024 Refill [facility] - Endocrinology [address] [facility], [place] [phone] Elvia Maxwell APRN-CNP Refill Request from Last 3 Months Immunizations Immunization Administration Dates Next Due INFLUENZA VACCINE 06/19/2012 INFLUENZA VACCINE, QUADR. (F LUZONE; FLULAVAL; FLUARIX; AFLURIA QUADRIVALENT; 6MO+), 0.5 ML (IIV4) 09/11/2018,09/20/2017,08/05/2016,2014 Family History Medical History Relation Name Comments Asthma Brother Relation Name Status Comments Brother Social History Tobacco Use Types Packs/Day Years Used Date Smoking Tobacco: Never Smokeless Tobacco: Never Tobacco Cessation:Counseling Given: Not Answered Alcohol Use Standard Drinks/Week Comments Yes 0 (1 standard drink = 0.6 oz pur e alcohol) soccially Sex and Gender Information Value Date Recorded Sex Assigned at Not on file Legal Sex Male 5:40 AM CONE RUNNER Gender Identity Not on file Sexual Orientation Not on file Last Filed Vital Signs Vital Sign Reading Time Taken Comments Blood Pressure 123/80 11/28/2024 2:21 PM CONE RUNNER Pulse 91 11/28/2024 2:21 PM CONE RUNNER Temperature 37.5 C (99.5 F) 11/28/2024 2:21 PM CONE RUNNER Respiratory Rate 16 08/05/2016 9:51 AM CONE RUNNER Oxygen Saturation 95% 11/28/2024 2:21 PM CONE RUNNER Inhaled Oxygen Concentration - - Weight 108.7 kg (239 lb 9.6 oz) 11/28/2024 2:21 PM CONE RUNNER Height 177.8 cm (5' 10 ) 10/27/2023 8: 38 AM CONE RUNNER Body Mass Index 34.38 10/27/2023 8:38 AM CONE RUNNER Plan of Treatment Upcoming Encounters Date Type Department Care Team (Late st Contact Info) Description 04/09/2025 1:00 PM CDT Office Visit [facility] - Endocrinology [address] [place] [phone] Elvia Maxwell, VIPUL-SOUND ENGINEER [address] [facility] [place] [phone] Health Maintenance Due Date Last Done Comments DIABETES RETINOPATHY SCREENING 01/02/2014 HIV SCREENING 2014 HPV VACCINE (1 - Male 3-dose series) 2014 HEPATITIS C SCREENING 07/22/2017 DIABETES-FOOT EXAM WITH MONOFILAMENT 2017 DTAP/TDAP/TD VACCINES (1 - Tdap) 2018 HEPATITIS B VACCINE (1 of 3 - 19+ 3-dose series) 2018 PNEUMOCOCCAL VACCINE (1 of 2 - PCV) 2018 COVID-19 VACCINE ( - season) 2024 DEPRESSION SCREENING 09/25/2024 DIABETES - URINE PROTEIN SCREENING 09/25/2024 03/06/2024, 09/11/2018, 09/20/2017, Additional history exists DIABETES-SERUM CREATININE 03/06/2025 03/06/2024, 08/2024 DIABETES-HGB A1C 05/31/2025 11/28/2024, , 11/10/2023, Additional history exists ZOSTER VACCINE (1 of 2) 2049 INFLUENZA VACCINE Completed 07/10/2024, , 09/11/2018, Additional history exists HIB VACCINE Aged Out No longer eligi ble based on patient's age to complete this topic MENINGOCOCCAL (Group B) VACCINE SHARED DECISION-MAKING Aged Out No longer eligible based on patient's age to complete this topic MENINGOCOCCAL GROUPS A/C/Y/W VACCINE Aged Out No longer eligible based on patient's age to complete this topic Procedures Procedure Name Priority Date/Time Associated Diagnosis Comments HEMOGLOBIN A1C - POINT OF CARE (AMB) [facility] Routine 11/28/2024 2:23 PM CONE RUNNER Type 1 diabetes mellitus without complication MICROALB/CREAT RATIO URINE RANDOM PANEL Routine 09/11/2018 9:56 AM CONE RUNNER Type 1 diabetes mellitus without complication from Last 3 Months or Most Recently Relevant to Health Maintenance Results * HEMOGLOBIN A1C - POINT OF CARE (AMB) [facility] (11/28/2024 2:23 PM CONE RUNNER) Hemoglobin A1c POCT 7.0 % MARCY [address] BLOOD SPECIMEN / Unknown 11/28/2024 2:23 PM CONE RUNNER Elvia Maxwell BLOCKMASON-SOUND ENGINEER LAB - POINT OF CARE OR DERABLES Final Result [address], [facility] [address] [place] [address], [facility] [phone] * MICROALB/CREAT RATIO URINE RANDOM PANEL (09/11/2018 9:56 AM CONE RUNNER) Creatinine Urine 58.92 mg/dL 09/11/20 11:32 AM [facility] Microalbumin Urine 0.9 <1.7 mg/dL 09/11/2018 11:32 AM CONE RUNNER [facility] Microalbumin/Crea tinine Ratio 15 <30 mg/g 09/11/2018 11:32 AM [facility] Urine URINE SPECIMEN OBTAINED BY CLEAN CATCH PROCEDURE / Unknown Collection / Unknown 09/11/2018 9:56 AM CONE RUNNER 09/11/2018 11:02 AM CONE RUNNER Mohinder Guevara MD LAB - URINE CHEMISTRY ORDERA BLES Final Result Performing Organization Address City/State/ZIP Co ct Phone Number [facility] [address] [place] [address] from Last 3 Months or Most Recently Relevant to Health Maintenance Insurance [facility] Address: [facility] [address] [place] [address] Care Teams Anesthesiologists' Assistant Relationship Specialty Start Date End Date Víctor Peralta DO [address] [phone] PCP - General Family Medicine 10/27/23
--- OUTSIDE RECORDS SUMMARY | 2025-02-08 01:15 | XMS_ITS | Encounter Summary ---
Author Organization [facility] Address [address] [place] [address] Care Team Providers Care Purchasing Manager Name Role Phone NormalydiaVíctor DO Primary Care Provider Encounter Details Date Type Department Care Team (Late st Contact Info) Description 12/07/2018 Telephone [facility] - Diabetes Mgmt [address] [place] [address] Mohinder Guevara MD [address] [place] [address] Social History Tobacco Use Types Packs/Day Years Used Date Smoking Tobacco: Never Smokeless Tobacco: Never Sex and Gender Information Value Date Recorded Sex Assigned at Not on file Legal Sex Male 5:40 AM CLAMP REMOVER Gender Identity Not on file Sexual Orientation Not on file documented as of this encounter Miscellaneous Notes * Telephone Encounter - Clifton Mcfadden RN - 12/07/2018 1:19 PM CDT I returned mom's call, she reports she has called multiple times to request a referral to an adult endo for Abdon, along with records. We don't show any documentation that she called. I will fax a referral to [facility] in [place], [place] to F [phone]. I told mom I will ask Savana to fax the most recent progress note, too. She has also contacted Medical records for full record transfer. documented in this encounter Plan of Treatment Upcoming Encounters Date Type Department Care Team (Late st Contact Info) Description 04/09/2025 1:00 PM CDT Office Visit [facility] - Endocrinology [address] [place] [address] Elvia Maxwell APRN-ARMHOLE PRESSER [address] [facility] [place] [phone] documented as of this encounter Visit Diagnoses Not on filedocumented in this encounter Care Teams Purchasing Manager Relationship Specialty Start Date End Date Víctor Peralta DO [address] [phone] PCP - General Family Medicine 10/27/23 documented as of this encounter
--- OUTSIDE RECORDS SUMMARY | 2025-02-08 01:16 | XMS_ITS | Encounter Summary ---
Author Organization [facility] Address [address] [place] [address] Care Team Providers Care Doctor Osteopathic Name Role Phone Víctor Peralta DO Primary Care Provider Reason for Visit * Reason Onset Date Comments General 06/09/2016 Encounter Details Date Type Department Care Team (Late st Contact Info) Description 06/09/2016 Telephone [facility] - Diabetes [phone] [place] [address] [place], CAR ELECTRONICS INSTALLER-SPANISH INTERPRETER [address] [place] [address] General Social History Tobacco Use Types Packs/Day Years Used Date Smoking Tobacco: Never Sex and Gender Information Value Date Recorded Sex Assigned at Not on file Legal Sex Male 5:40 AM AUTOMATIC PROFILE SANDER OPERATOR Gender Identity Not on file Sexual Orientation Not on file documented as of this encounter Miscellaneous Notes * Telephone Encounter - Karla Ramirez RN - 02/09/2017 10:33 AM CDT Called [employer] per mother's request to have them fax over order sheet for pump supplies. Notified mother that I had been in contact with [employer] and am expecting an order form. * Telephone Encounter - Karla Ramirez RN - 10/21/2016 10:03 AM AUTOMATIC PROFILE SANDER OPERATOR PA completed and sent to [employer] for 300 Freestyle test strips per month MATIC PROFILE SANDER OPERATOR * Telephone Encounter - Clifton Mcfadden RN - 06/09/2016 11:54 AM CDT I returned mom's call, she faxed bgs and reports Abdon's bg rises initially following a bolus and then bottoms out within an hour. Clarity code for Dexcom code is . I asked mom to generate a new code so that we can review logs along with Dexcom report. Mom will get that info and call us back. documented in this encounter Plan of Treatment Upcoming Encounters Date Type Department Care Team (Late st Contact Info) Description 04/09/2025 1:00 PM CDT Office Visit [facility] End[facility]ology [address] [place] [phone] Elvia Maxwell APRN-SPANISH INTERPRETER [address] [facility] [phone] documented as of this encounter Visit Diagnoses Not on filedocumented in this encounter Care Teams Doctor Osteopathic Relationship Specialty Start Date End Date Víctor Peralta DO [address] [phone] PCP - General Family Medicine 10/27/23 documented as of this encounter
--- OUTSIDE RECORDS SUMMARY | 2025-02-08 01:16 | XMS_ITS | Encounter Summary ---
Author Organization [facility] Address [address] [place] [address] Care Team Providers Care Plastic Panel Installer Name Role Phone Víctor Peralta DO Primary Care Provider Reason for Visit * Reason Onset Date Comments MEDICATION REFILL 10/28/2016 Encounter Details Date Type Department Care Team (Late Contact Info) Description 10/28/2016 Refill [facility] - Endocrinology [address] [place] [place] [address] Olga Nguyen MD MEDICATION REFILL Social History Tobacco Use Types Packs/Day Years Used Date Smoking Tobacco: Never Sex and Gender Information Value Date Recorded Sex Assigned at Not on file Legal Sex Male 5:40 AM LAMP REPLACER Gender Identity Not on file Sexual Orientation Not on file documented as of this encounter Plan of Treatment Upcoming Encounters Date Type Department Care Team ([facility] Contact Info) Description 04/09/2025 1:00 PM CDT Office Visit [facility] - Endocrinology [address] [place] [phone] Elvia Maxwell, VIPUL-INTERIOR HORTICULTURIST [address] [facility] [place] [phone] documented as of this encounter Visit Diagnoses Diagnosis Type 1 diabetes mellitus without complication, with long-term current use of insulin (HCC) documented in this encounter Care Teams Plastic Panel Installer Relationship Specialty Start Date End Date Víctor Peralta DO [address] [phone] PCP - General Family Medicine 10/27/23 documented as of this encounter
[2025-02-08 01:20] LABS: Glucose Point of Care 67 mg/dl (65-105)
--- NOTE | 2025-02-08 02:25 | PC.NURSE ---
pt mom to turn down attendant we are leaving. pt ambulatory with steady gait out of front entrance. with parents and fiance.
--- OUTSIDE RECORDS SUMMARY | 2025-02-08 02:38 | XMS_ITS | Encounter Summary ---
Author Organization [facility] Address [address] [place] [address] Care Team Providers Care College Athletic Director Name Role Phone Víctor Peralta DO Primary Care Provider Reason for Visit * Reason Onset Date Comments MEDICATION REFILL 10/28/2016 Encounter Details Date Type Department Care Team (Late Contact Info) Description 10/28/2016 Refill [facility] - Endocrinology [address] [facility] 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 [place] [phone] documented as of this encounter Visit Diagnoses Diagnosis Type 1 diabetes mellitus without complication, with long-term current use of insulin (HCC) documented in this encounter Care Teams College Athletic Director Relationship Specialty Start Date End Date Víctor Peralta DO [address] [phone] PCP - General Family Medicine 10/27/23 documented as of this encounter
--- OUTSIDE RECORDS SUMMARY | 2025-02-08 02:38 | XMS_ITS | Clinical Summary ---
Author Organization [facility] Address [address] [place] [address] Care Team Providers Care Systems Test Technician Name Role Phone Chaz Goel Primary Care Provider [phone] Allergies Active Allergy Reactions Criticality Noted Date [...] GLUCOSE FIVE TIMES DAILY Active Continuous Glucose [employer] Technical Lead Senior Developer (DEXCOM G6 NAIL PULLER) Device see administration instructions. Active Continuous Glucose [...] Care Team Description 01/13/2025 MyChart Message Enc [facility] Family & Internal Medicine [address] [address] Chaz Goel PA Paroxetine prescription 12/02/2024 8:40 AM CDT Office Visit [facility] Internal Medicine [address] [address] Chaz Goel PA Follow Up [...] Sex Assigned at Male 11/26/2024 9:31 AM DUTY OFFICER Legal Sex Male 7:46 PM CDT Gender [...] Description 03/05/2025 8:40 AM CDT Office Visit [facility] Family & Internal Medicine - [place] [phone] [place] [phone] [place] [address] [place], [place] [phone] Health Maintenance Due Date Last Done Comments [...] Meningococcal Vaccine Completed 05/09/2016, 010 PHQ-2 (Physician [place]) Completed 12/02/2024 Meningococcal B Vaccine Aged Out [...] 151 <200.0 MG/DL 03/06/2024 2:49 PM CDT [facility] TRIGLYCERIDES 70 <150 MG/DL 03/06/2024 2:49 PM CDT [facility] HDL 62 >40.0 MG/DL 03/06/2024 2:49 PM CDT [facility] LDL (CALCULATED) 75 <100 MG/DL 03/06/20 2:49 PM CDT [facility] NON HDL CHOLESTEROL 89 <130 MG/DL 03/06 2:49 PM CDT [facility] CHOL/HDL RATIO 2.4 0.0 - 4.5 03/06/2024 2:49 PM CDT [facility] VLDL CALCULATION 14 5 - 55 MG/DL 03/06/2024 2:49 PM CDT [facility] LIPID INTERPRETATION 03/06/2024 2:49 PM CDT [facility] Comment: NIH CONCENSUS REPORT RECOMMENDATIONS: ADULT CHILD LOW RISK: CHOLESTEROL <200 <170 TRIGLYCERIDE <150 --- HDL >=60 --- LDL <100 <110 BORDERLINE: CHOLESTEROL 200-239 170-199 TRIGLYCERIDE 150-199 --- HDL 40-59 --- LDL 100-159 110-129 HIGH RISK: CHOLESTEROL >=240 >=200 TRIGLYCERIDE >=200 --- HDL <40 --- LDL >=160 >=130 03/06/2024 2:10 PM CDT Elvia Alissa NURSE DISCHARGE PLANNER LABORATORY Final Resu lt [facility] [address] [place] [address], from Last 3 Months or Most Recently Relevant to Health Maintenance Insurance R Care Teams Systems Test Technician Relationship Specialty [place] [address] [place], [place] [phone] PCP - General Physician Reference And Instruction Librarian Medical 07/10/24
--- OUTSIDE RECORDS SUMMARY | 2025-02-08 02:38 | XMS_ITS | Encounter Summary ---
Author Organization [facility] Address [address] [facility] [place] [address] Care Team Providers Care Pulpwood Cutter Name Role Phone NormalydiaVíctor DO Primary Care Provider Reason for Visit * Reason Onset Date Comments Appointment 01/13/2016 Dad ask that I s end you a message regarding CGM training. The CGM will be delivered Sunday 01/14. Encounter Details Date Type Department Care Team ([facility] Contact Info) Description 01/13/2016 Telephone [facility] - Diabetes [facility] [address] [place] [address] [place] APRN-SUPERVISOR PAIRING AND INSPECTING [address] [place] [phone] Appointment (Dad ask that I send you a message regarding CGM training. The CGM will be delivered Sunday 01/14. ) Social History Tobacco Use Types Packs/Day Years Used Date Smoking Tobacco: Never Sex and Gender Information Value Date Recorded Sex Assigned at Not on file Legal Sex Male 5:40 AM VARIETY PERFORMER Gender Identity Not on file Sexual Orientation Not on file documented as of this encounter Plan of Treatment Upcoming Encounters Date Type Department Care Team ([facility] Contact Info) Description 04/09/2025 1:00 PM CDT Office Visit [facility] - Endocrinology [address] [place] [phone] Elvia Maxwell APRN-SUPERVISOR PAIRING AND INSPECTING [address] [facility] [phone] documented as of this encounter Visit Diagnoses Not on filedocumented in this encounter Care Teams Pulpwood Cutter Relationship Specialty Start Date End Date Víctor Peralta DO [address] [phone] PCP - General Family Medicine 10/27/23 documented as of this encounter
--- OUTSIDE RECORDS SUMMARY | 2025-02-08 02:38 | XMS_ITS | Encounter Summary ---
Author Organization [facility] Address [address] [place] [address] Care Team Providers Care Extension Educator Name Role Phone Normalydia Víctor Willard GOODRICH Primary Care Provider Encounter Details Date Type Department Care Team (Late Contact Info) Description 10/09/2019 Telephone [facility] Pediatrics - Diabetes [facility] [address] [place] [address] [place], FALAFEL CART COOK-ENVIRONMENTAL HEALTH MANAGER [address] [place] [phone] Social History Tobacco Use Types Packs/Day Years Used Date Smoking Tobacco: Never Smokeless Tobacco: Never Sex and Gender Information Value Date Recorded Sex Assigned at Not on file Legal Sex Male 5:40 AM DIESEL SERVICE APPRENTICE Gender Identity Not on file Sexual Orientation Not on file documented as of this encounter Miscellaneous Notes * Telephone Encounter - Chen Plummer RN - 10/09/2019 1:39 PM CST [facility] called to ask if this patient was still under our care. I notified them that he isnot being seen by an adult airline pilot flight instructor. They said they would reach out to the family. EL SERVICE APPRENTICE documented in this encounter Plan of Treatment Upcoming Encounters Date Type Department Care Team (Late Contact Info) Description 04/09/2025 1:00 PM CDT Office Visit [facility] - Endocrinology [address] [place] [address] Elvia Maxwell, VIPUL-ENVIRONMENTAL HEALTH MANAGER [address] [facility] [phone] documented as of this encounter Visit Diagnoses Not on filedocumented in this encounter Care Teams Extension Educator Relationship Specialty Start Date End Date Víctor Peralta DO [address] [phone] PCP - General Family Medicine 10/27/23 documented as of this encounter
--- OUTSIDE RECORDS SUMMARY | 2025-02-08 02:38 | XMS_ITS | Clinical Summary ---
Author Organization [facility] Address [address] [place] [address] Care Team Providers Care Crystal Mounter Name Role Phone WorkmanVíctor Primary Care Provider Source Comments [facility],non-owned Affiliates and Associated Physician Practices is amultiple site organization consisting of ambulatory clinics and hospital sitesin [place], [place], [place] and [place]. This disclosure is being madepursuant to the Care Everywhere program and may not contain all information available regarding this patient. 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 Alwaysverify current medications with the patient. fluticasone propionate (FLONASE) 50 MCG/ACT nasal spray Black Eagle 1 Black Eagle into each nostril once daily. 1 Inhaler [...] 25 Active Insulin Disposable Pump (Omnipod 5 [id number] Pods Gen 5) MISCIndications: Type 1 diabetes [...] (06/25/2015): Assessment & Plan (08/05/2016 10:45 AM VOCATIONAL SCHOOL TEACHER): Asthma - classified as Moderate persistent. This [...] 05/15/2007 Assessment & Plan (09/21/2017 12:30 PM VOCATIONAL SCHOOL TEACHER): 1) increase midnight basal to 1.9 units [...] 1:30 PM CDT): 1) increase basal from 4546-5395 to 1.5 2) increase ISF to 25 3) call as needed 4) return in [address] Guevara Resolved Problems Problem Noted Date Diagnosed Date Resolved Date Asthma 02/17/2012 02/17/2015 Encounters Date Type Department Care Team Description 01/08/2025 Travel 12/11/2024 Refill [facility] - Endocrinology [address] [place] [address] Elvia Maxwell APRN-CNP MEDICATION REFILL 11/28/2024 2:20 PM VOCATIONAL SCHOOL TEACHER Office Visit [facility] - Endocrinology [address] [place] [address] Elvia Maxwell APRN-CNP Type 1 diabetes mellitus without complication (Primary Dx) 11/28/2024 Travel 11/13/2024 Refill [facility] - Endocrinology [address] [facility], [place] [phone] Eliva Maxwell APRN-CNP Refill Request from Last 3 [...] on file Legal Sex Male 5:40 AM VOCATIONAL SCHOOL TEACHER Gender Identity Not on file Sexual Orientation Not on file Last Filed Vital Signs Vital Sign Reading Time Taken Comments Blood Pressure 123/80 11/28/2024 2:21 PM VOCATIONAL SCHOOL TEACHER Pulse 91 11/28/2024 2:21 PM VOCATIONAL SCHOOL TEACHER Temperature 37.5 C (99.5 F) 11/28/2024 2:21 PM VOCATIONAL SCHOOL TEACHER Respiratory Rate 16 08/05/2016 9:51 AM VOCATIONAL SCHOOL TEACHER Oxygen Saturation 95% 11/28/2024 2:21 PM VOCATIONAL SCHOOL TEACHER Inhaled Oxygen Concentration - - Weight 108.7 kg (239 lb 9.6 oz) 11/28/2024 2:21 PM VOCATIONAL SCHOOL TEACHER Height 177.8 cm (5' 10 ) 10/27/2023 8: 38 AM VOCATIONAL SCHOOL TEACHER Body Mass Index 34.38 10/27/2023 8:38 AM VOCATIONAL SCHOOL TEACHER Plan of Treatment Upcoming Encounters Date Type Department Care Team (Late st Contact Info) Description 04/09/2025 1:00 PM CDT Office Visit [facility] - Endocrinology [address] [place] [phone] Elvia Maxwell, VIPUL-SALES PROJECT MANAGER [address] [facility] [place] [phone] Health Maintenance Due Date Last Done Comments [...] CARE (AMB) [facility] Routine 11/28/2024 2:23 PM VOCATIONAL SCHOOL TEACHER Type 1 diabetes mellitus without complication MICROALB/CREAT RATIO URINE RANDOM PANEL Routine 09/11/2018 9:56 AM VOCATIONAL SCHOOL TEACHER Type 1 diabetes mellitus without complication from Last 3 Months or Most Recently Relevant to Health Maintenance Results * HEMOGLOBIN A1C - POINT OF CARE (AMB) [facility] (11/28/2024 2:23 PM VOCATIONAL SCHOOL TEACHER) Hemoglobin A1c POCT 7.0 % [address]Y [address] BLOOD SPECIMEN / Unknown 11/28/2024 2:23 PM VOCATIONAL SCHOOL TEACHER Elvia Maxwell TICKET SALES SUPERVISOR-SALES PROJECT MANAGER LAB - POINT OF CARE OR DERABLES Final Result MARCY [address], [facility] [address] [place] [address], [facility] [phone] * MICROALB/CREAT RATIO URINE RANDOM PANEL (09/11/2018 9:56 AM VOCATIONAL SCHOOL TEACHER) Creatinine Urine 58.92 mg/dL 09/11/20 11:[address] [facility] Microalbumin Urine 0.9 <1.7 mg/dL 09/11/2018 11:32 AM VOCATIONAL SCHOOL TEACHER [facility] Microalbumin/Crea tinine Ratio 15 <30 mg/g 09/11/2018 11:[address] [facility] Urine URINE SPECIMEN OBTAINED BY CLEAN CATCH PROCEDURE / Unknown Collection / Unknown 09/11/2018 9:56 AM VOCATIONAL SCHOOL TEACHER 09/11/2018 11:02 AM VOCATIONAL SCHOOL TEACHER Mohinder Guevara MD LAB - URINE CHEMISTRY ORDERA BLES Final Result Performing Organization Address City/State/ZIP Co wa Phone Number [facility] [address] [place] [address] from Last 3 Months or Most Recently Relevant to Health Maintenance Insurance [facility] Care Teams Crystal Mounter Relationship Specialty Start Date End Date Víctor Peralta DO [address] [phone] PCP - General Family Medicine 10/27/23
--- OUTSIDE RECORDS SUMMARY | 2025-02-08 02:38 | XMS_ITS | Encounter Summary ---
Author Organization [facility] Address [address] [facility] [place] [address] Care Team Providers Care Online Marketing Manager Name Role Phone NormalydiaVíctor DO Primary Care Provider Reason for Visit * Reason Onset Date Comments MEDICATION REFILL 12/11/2024 Encounter Details Date Type Department Care Team (Late Contact Info) Description 12/11/2024 Refill [facility] - Endocr[facility] [phone] Elvia Maxwell APRN-CONTRACT ANALYST [address] [place] [address] MEDICATION REFILL Social History Tobacco Use Types Packs/Day Years Used Date Smoking Tobacco: Never Smokeless Tobacco: Never Alcohol Use Standard Drinks/Week Comments Yes 0 (1 standard drink = 0.6 oz pur e alcohol) soccially Sex and Gender Information Value Date Recorded Sex Assigned at Not on file Legal Sex Male 5:40 AM GAS AND OIL SERVICER Gender Identity Not on file Sexual Orientation Not on file documented as of this encounter Plan of Treatment Upcoming Encounters Date Type Department Care Team (Late Contact Info) Description 04/09/2025 1:00 PM CDT Office Visit [facility] - [place] [phone] Elvia Maxwell COMB MACHINE OPERATOR-CONTRACT ANALYST [address] [place] [phone] documented as of this encounter Visit Diagnoses Diagnosis Type 1 diabetes mellitus without complication (HCC) Type I (juvenile type) diabetes mellitus without mention of complication, not stated as uncontrolled documented in this encounter Care Teams Online Marketing Manager Relationship Specialty Start Date End Date Víctor Peralta DO [address] [phone] PCP - General Family Medicine 10/27/23 documented as of this encounter
--- OUTSIDE RECORDS SUMMARY | 2025-02-08 02:38 | XMS_ITS | Encounter Summary ---
Author Organization [facility] Address [address] [facility] [place] [address] Care Team Providers Care Used Equipment Sales Representative Name Role Phone WorkVíctor freeman Primary Care Provider Encounter Details Date Type Department Care Team ([facility] Contact Info) Description 12/10/2018 Telephone [facility] Pediatrics - Endocrinology [address] [facility] [place] [address] Savana Moreno Social History Tobacco Use Types Packs/Day Years Used Date Smoking Tobacco: Never Smokeless Tobacco: Never Sex and Gender Information Value Date Recorded Sex Assigned at Not on file Legal Sex Male 5:40 AM LOT WORKER Gender Identity Not on file Sexual [...] make appointment until received. Fax number is [phone]. documented in this encounter Plan of Treatment Upcoming Encounters Date Type Department Care Team (Late Contact Info) Description 04/09/2025 1:00 PM CDT Office Visit [facility] - Endocrinology [address] [place] [phone] Elvia Maxwell, VIPUL-DOCUMENT MANAGEMENT TECHNICIAN [address] [facility] [place] [phone] documented as of this encounter Visit Diagnoses Not on filedocumented in this encounter Care Teams Used Equipment Sales Representative Relationship Specialty Start Date End Date Víctor Peralta DO [address] [phone] PCP - General Family Medicine 10/27/23 documented as of this encounter
--- OUTSIDE RECORDS SUMMARY | 2025-02-08 02:38 | XMS_ITS | Encounter Summary ---
Author Organization [facility] Address [address] [facility] [place] [address] Care Team Providers Care Social Worker Clinical Name Role Phone NormalydiaVíctor DO Primary Care Provider Encounter Details Date Type Department Care Team (Late st Contact Info) Description 12/07/2018 Telephone [facility] Pediatrics - Diabetes Mgmt [address] [place] [address] Mohinder Guevara MD [address] [place] [phone] Social History Tobacco Use Types Packs/Day Years Used Date Smoking Tobacco: Never Smokeless Tobacco: Never Sex and Gender Information Value Date Recorded Sex Assigned at Not on file Legal Sex Male 5:40 AM HUMAN RESOURCES RECEPTIONIST Gender Identity Not on file Sexual Orientation [...] called. I will fax a referral to [facility] in [place], [place] to F [phone]. I told mom I will ask Savana to fax the most recent progress note, too. She has also contacted Medical records for full record transfer. documented in this encounter Plan of Treatment Upcoming Encounters Date Type Department Care Team (Late st Contact Info) Description 04/09/2025 1:00 PM CDT Office Visit [facility] - Endocrinology [address] [place] [address] Elvia Maxwell APRN-LOG GETTER [address] [facility] [place] [phone] documented as of this encounter Visit Diagnoses Not on filedocumented in this encounter Care Teams Social Worker Clinical Relationship Specialty Start Date End Date Víctor Peralta DO [address] [phone] PCP - General Family Medicine 10/27/23 documented as of this encounter
--- OUTSIDE RECORDS SUMMARY | 2025-02-08 02:38 | XMS_ITS | Encounter Summary ---
Author Organization [facility] Address [address] [place] [address] Care Team Providers Care Supervisor Drilling And Shooting Name Role Phone Víctor Peralta DO Primary Care Provider Reason for Visit * Reason Onset Date Comments General 06/09/2016 Encounter Details Date Type Department Care Team (Late st Contact Info) Description 06/09/2016 Telephone [facility] Pediatrics - Diabetes [phone] [place] [address] [place], ENGINEERING MECHANIC-WOODS BOSS [address] [place] [address] General Social History Tobacco Use Types Packs/Day Years Used Date Smoking Tobacco: Never Sex and Gender Information Value Date Recorded Sex Assigned at Not on file Legal Sex 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 Gender Identity Not on file Sexual Orientation [...] Karla Ramirez RN - 10/21/2016 10:03 AM DIGITAL LEARNING PLATFORMS MANAGER PA completed and sent to [employer] for 300 Freestyle test strips per month TAL LEARNING PLATFORMS MANAGER * Telephone Encounter - Clifton Mcfadden RN [...] Description 04/09/2025 1:00 PM CDT Office Visit [facility] - Endocrinology [address] [place] [phone] Elvia Maxwell APRN-WOODS BOSS [address] [facility] [place] [phone] documented as of this encounter Visit Diagnoses Not on filedocumented in this encounter Care Teams Supervisor Drilling And Shooting Relationship Specialty Start Date End Date Víctor Peralta DO [address] [phone] PCP - General Family Medicine 10/27/23 documented as of this encounter
--- OUTSIDE RECORDS SUMMARY | 2025-02-08 02:38 | XMS_ITS | Encounter Summary ---
Author Organization [facility] Address [address] [facility] [place] [address] Care Team Providers Care Email Campaign Manager Name Role Phone WorkmanVíctor DO Primary Care Provider Reason for Visit * Reason Comments Refill Request Encounter Details Date Type Department Care Team (Late Contact Info) Description 04/02/2019 Refill [facility] Pediatrics - Diabetes [address] [place] [address] [place], VIPUL-MANAGED CARE DIRECTOR [address] [place] [address] Refill Request Social History Tobacco Use Types Packs/Day Years Used Date Smoking Tobacco: Never Smokeless Tobacco: Never Sex and Gender Information Value Date Recorded Sex Assigned at Not on file 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
--- OUTSIDE RECORDS SUMMARY | 2025-02-08 02:38 | XMS_ITS | Encounter Summary ---
Author Organization [facility] Address [address] [facility] [place] [address] Care Team Providers Care Assembler Brazer Name Role Phone Víctor Peralta DO Primary Care Provider Reason for Visit * Reason Onset Date Comments MEDICATION REFILL 03/03/2015 Encounter Details Date Type Department Care Team ([facility] Contact Info) Description 03/03/2015 Refill [facility] Pediatrics - Diabetes Mgmt [facility] [place] [address] Mohinder Guevara MD [facility] [place] [address] MEDICATION REFILL Social History Tobacco Use Types Packs/Day Years Used Date Smoking Tobacco: Never Sex and Gender Information Value Date Recorded Sex Assigned at Not on file 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 Gender Identity Not on file Sexual Orientation Not on file documented as of this encounter Plan of Treatment Upcoming Encounters Date Type Department Care Team ([facility] Contact Info) Description 04/09/2025 1:00 PM CDT Office Visit [facility] - Endocrinology [address] [place] [phone] Elvia Maxwell APRN-SHIPYARD PAINTER APPRENTICE [address] [facility] [place] [phone] documented as of this encounter Visit Diagnoses Not on filedocumented in this encounter Care Teams Assembler Brazer Relationship Specialty Start Date End Date Víctor Peralta DO [address] [phone] PCP - General Family Medicine 10/27/23 documented as of this encounter
== END 2025-02-08 02:37 | disposition left against medical advice (07) ==
PROVIDERS: Emergency Provider Student in an Organized Health Care Education/Training Program; PCP Pediatrics
DX: E16.2 Hypoglycemia, unspecified (principal)
CPT/HCPCS: 82948; 99199